=== PATIENT | female | born 1985 | race Caucasian/White ===

== ENCOUNTER 2016-03-17 01:02 | Emergency (ER) | payer OTHER, MEDICAID ==
[2016-03-17] MEDS ORDERED: DIPHENHYDRAMINE 50 MG/ML VIAL ONE (02:11)
[2016-03-17] MEDS ORDERED: SODIUM CHLORIDE 0.9% 1,000 ML ONE (02:11)
[2016-03-17] MEDS ORDERED: ONDANSETRON 4 MG VIAL ONE (02:11)
== END 2016-03-17 04:46 | disposition home or self-care (01) ==
LOC: ER 01:02
DX: O26.892 Other specified pregnancy related conditions, second trimester (principal); O23.12 Infections of bladder in pregnancy, second trimester; O24.312 Unspecified pre-existing diabetes mellitus in pregnancy, second trimester; G44.211 Episodic tension-type headache, intractable; R06.02 Shortness of breath; E11.9 Type 2 diabetes mellitus without complications; Z79.4 Long term (current) use of insulin; Z3A.25 25 weeks gestation of pregnancy
CPT/HCPCS: 36415; 80053; 81001; 85025; 85379; 87088; 96361; 96374; 96375